=== PATIENT | female | born 1990 | race African-American/Black ===

== ENCOUNTER 2018-05-30 09:42 | Emergency (ER) | payer OTHER ==
[~2018-05-30] VITALS: Ht 157.5 cm; Wt 93.9 kg
[2018-05-30] MEDS ORDERED: BENTYL 20 MG TA20 M1 PO (09:49)
[2018-05-30] MEDS ORDERED: TRAMADOL 50 MG50 MG PO (10:59)
[2018-05-30] MEDS ORDERED: IBUPROFEN 600600 M1 PO (10:59)
[2018-05-30 11:46] VITALS: BP 152/72
== END 2018-05-30 11:35 | disposition home or self-care (01) ==
LOC: ER 09:42
DX: M65.4 Radial styloid tenosynovitis [de Quervain] (principal)

== ENCOUNTER 2019-04-10 11:18 | Emergency (ER) | payer OTHER ==
[~2019-04-10] VITALS: Ht 157.5 cm; Wt 95.3 kg
[~2019-04-10 11:18] MED LIST: BENTYL 20 MG TA20 M1 PO; IBUPROFEN 600600 M1 PO; TRAMADOL 50 MG50 MG PO
[2019-04-10 11:30] VITALS: BP 120/73
[2019-04-10] MEDS ORDERED: KEFLEX500 M1 PO (11:33)
[2019-04-10] MEDS ORDERED: NORCO 5-325 TA1 EAC1 PO (12:41)
[2019-04-10] MEDS ORDERED: CLEOCIN HCL150 MG PO (12:41)
[2019-04-11] MEDS ORDERED: NORCO 5-325 TA1 EAC1 PO (15:50)
[2019-04-11] MEDS ORDERED: CLEOCIN HCL150 MG PO (15:50)
== END 2019-04-10 12:48 | disposition left against medical advice (07) ==
LOC: ER 11:18
DX: L02.411 Cutaneous abscess of right axilla (principal); L73.2 Hidradenitis suppurativa; J45.909 Unspecified asthma, uncomplicated; G43.909 Migraine, unspecified, not intractable, without status migrainosus; K58.9 Irritable bowel syndrome, unspecified; F17.210 Nicotine dependence, cigarettes, uncomplicated; Z88.5 Allergy status to narcotic agent; Z88.6 Allergy status to analgesic agent; Z88.2 Allergy status to sulfonamides

== ENCOUNTER 2019-04-11 15:33 | Emergency (ER) | payer OTHER ==
[~2019-04-11] VITALS: Ht 157.5 cm; Wt 93.0 kg
[~2019-04-11 15:33] MED LIST changes: +CLEOCIN HCL150 MG PO; +KEFLEX500 M1 PO; +NORCO 5-325 TA1 EAC1 PO
[2019-04-11 15:36] VITALS: BP 134/81
[2019-04-11] MEDS ORDERED: NORCO 5-325 TA1 EAC1 PO (15:50)
[2019-04-11] MEDS ORDERED: CLEOCIN HCL150 MG PO (15:50)
== END 2019-04-11 16:24 | disposition home or self-care (01) ==
LOC: ER 15:33
DX: L02.411 Cutaneous abscess of right axilla (principal); L73.2 Hidradenitis suppurativa; J45.909 Unspecified asthma, uncomplicated; G43.909 Migraine, unspecified, not intractable, without status migrainosus; K58.9 Irritable bowel syndrome, unspecified; F17.210 Nicotine dependence, cigarettes, uncomplicated; Z88.2 Allergy status to sulfonamides; Z88.5 Allergy status to narcotic agent; Z88.6 Allergy status to analgesic agent

== ENCOUNTER 2020-01-02 11:28 | Emergency (ER) | payer OTHER ==
[~2020-01-02] VITALS: Ht 157.5 cm; Wt 97.5 kg
[2020-01-02] MEDS ORDERED: ZOLOFT25 MG PO (13:13)
[2020-01-02 13:32] LABS: ABSOLUTE NEUTROPHILS 9.2 thou/uL (1.4-8.2); BASOPHILS 0.5 % (0.0-2.0); HEMATOCRIT 36.9 % (37.0-47.0); LYMPHOCYTES 14.9 % (24.0-44.0); MCH 26.1 pg (26.0-34.0); MCHC 32.6 g/dL (28.0-37.0); MONOCYTES 3.5 % (1.0-8.0); PLATELET COUNT 414 thou/uL (150-400); POLYS 80.1 % (36.0-66.0); RBC 4.61 mil/uL (4.20-5.00); RDW 14.9 % (10.5-14.5); WBC 11.5 thou/uL (4.0-11.0)
[2020-01-02 13:33] LABS: URINE BILIRUBIN NEGATIVE (Negative); URINE BLOOD NEGATIVE (Negative); URINE CLARITY CLEAR; URINE COLOR YELLOW; URINE GLUCOSE-RANDOM* NEGATIVE (Negative); URINE KETONES NEGATIVE (Negative); URINE LEUKOCYTES-REFLEX NEGATIVE (Negative); URINE NITRITE-REFLEX NEGATIVE (Negative); URINE PROTEIN (DIPSTICK) NEGATIVE (Negative); URINE UROBILINOGEN 0.2 E.U./dl (0.2-1.0)
[2020-01-02 13:50] LABS: CALCIUM 8.9 mg/dL (8.5-10.1); CREATININE 0.8 mg/dL (0.6-1.0)
[2020-01-02 13:56] LABS: ALBUMIN 3.6 g/dL (3.4-5.0); TOTAL BILIRUBIN 0.3 mg/dL (0.2-1.0); TOTAL PROTEIN 8.2 g/dL (6.4-8.2)
[2020-01-02] MEDS ORDERED: ATIVAN0.5 M1 PO (14:38)
[2020-01-02 15:35] VITALS: BP 121/66
--- NOTE | 2020-01-02 16:53 | EKG ---
[facility] [place] [address] ELECTROCARDIOGRAM REPORT Name: MOIRA BURGOS [id number] Admission: 01/02/20 Attend Phys: Discharge: 01/02/20 Date of : 86 Report #: [id number] THIS REPORT FOR: cc: YAMILA Wan family physician/PCP YAMILA - Soco family physician/PCP Roberto Carlos Prescott MD [facility] THIS REPORT FOR: //name// [facility] ED Test Date: 2020-01-02 Test Time: 12:01:07 Pat Name: MOIRA BURGOS Department: Room: Gender: F [employer] Worker: no : 1990 Requested By: Mylene Vivar Order Number: [id number] MD: Roberto Carlos Prescott Measurements Intervals [place] Rate: 60 P: -2 MN: 174 QRS: 35 QRSD: 87 T: -8 QT: 376 QTc: 376 Interpretive Statements Sinus rhythm Nonspecific T wave abnormality No previous ECG available for comparison Electronically Signed On 01-02-2020 16:53:38 CDT by Roberto Carlos Prescott [email or web address] <ELECTRONICALLY SIGNED> By: Roberto Carlos Prescott MD, [facility] 01/02/20 1653 1201 120 Roberto Carlos Prescott MD, [facility] /EPI
== END 2020-01-02 15:36 | disposition home or self-care (01) ==
LOC: ER 11:28
PROVIDERS: Physician Assistant
DX: F41.0 Panic disorder [episodic paroxysmal anxiety] (principal); J45.909 Unspecified asthma, uncomplicated; K58.8 Other irritable bowel syndrome; G43.909 Migraine, unspecified, not intractable, without status migrainosus; F17.210 Nicotine dependence, cigarettes, uncomplicated; Z88.2 Allergy status to sulfonamides; Z88.5 Allergy status to narcotic agent; Z88.6 Allergy status to analgesic agent

== ENCOUNTER 2020-06-16 11:41 | Emergency (ER) | payer OTHER ==
[~2020-06-16] VITALS: Ht 157.5 cm; Wt 97.5 kg
[~2020-06-16 11:41] MED LIST changes: +ATIVAN0.5 M1 PO; +ZOLOFT25 MG PO
[2020-06-16] MEDS ORDERED: FLEXERIL PO (13:05)
[2020-06-16 13:23] VITALS: BP 133/81
== END 2020-06-16 13:23 | disposition home or self-care (01) ==
LOC: ER 11:41
DX: M62.830 Muscle spasm of back (principal); G89.29 Other chronic pain; R42 Dizziness and giddiness; J45.909 Unspecified asthma, uncomplicated; G43.909 Migraine, unspecified, not intractable, without status migrainosus; F17.210 Nicotine dependence, cigarettes, uncomplicated; Z98.890 Other specified postprocedural states; Z79.899 Other long term (current) drug therapy; Z79.2 Long term (current) use of antibiotics; Z88.2 Allergy status to sulfonamides; Z88.5 Allergy status to narcotic agent; Z88.8 Allergy status to other drugs, medicaments and biological substances

== ENCOUNTER 2021-02-21 17:32 | Emergency (ER) | payer OTHER ==
[~2021-02-21] VITALS: Ht 157.5 cm; Wt 99.8 kg
[~2021-02-21 17:32] MED LIST changes: +FLEXERIL PO
[2021-02-21] MEDS ORDERED: DOXYCYCLINE 10100 MG PO (17:48)
[2021-02-21] MEDS ORDERED: HYDROCODON-ACE1 EAC7 PO (17:49)
[2021-02-21 18:10] VITALS: BP 116/80
== END 2021-02-21 18:00 | disposition home or self-care (01) ==
LOC: ER 17:32
DX: L02.412 Cutaneous abscess of left axilla (principal); J45.909 Unspecified asthma, uncomplicated; G43.909 Migraine, unspecified, not intractable, without status migrainosus; F17.210 Nicotine dependence, cigarettes, uncomplicated; Z98.890 Other specified postprocedural states; Z79.1 Long term (current) use of non-steroidal anti-inflammatories (NSAID); Z79.899 Other long term (current) drug therapy; Z79.891 Long term (current) use of opiate analgesic; Z88.2 Allergy status to sulfonamides; Z88.5 Allergy status to narcotic agent; Z88.6 Allergy status to analgesic agent

== ENCOUNTER 2021-02-25 11:46 | Emergency (ER) | payer OTHER ==
[~2021-02-25] VITALS: Ht 157.5 cm; Wt 99.8 kg
[2021-02-25 11:46] VITALS: BP 131/74
[~2021-02-25 11:46] MED LIST changes: +DOXYCYCLINE 10100 MG PO; +HYDROCODON-ACE1 EAC7 PO
[2021-02-25] MEDS ORDERED: NORCO5 PO (12:34)
== END 2021-02-25 12:35 | disposition home or self-care (01) ==
LOC: ER 11:46
DX: L02.414 Cutaneous abscess of left upper limb (principal); J45.909 Unspecified asthma, uncomplicated; G43.909 Migraine, unspecified, not intractable, without status migrainosus; F17.210 Nicotine dependence, cigarettes, uncomplicated; Z98.890 Other specified postprocedural states; Z88.5 Allergy status to narcotic agent; Z88.2 Allergy status to sulfonamides